=== PATIENT | male | born 2000 | race Caucasian/White ===

== ENCOUNTER 2023-12-10 15:39 | Emergency (ER) | payer BC ==
[2023-12-10 15:57] VITALS: TEMP 98.1
--- NOTE | 2023-12-10 16:04 | ERPHSYRPT ---
- History of Present Illness Time Seen by Provider: 12/10/23 15:50 Historian: patient, family Exam Limitations: no limitations Patient Subjective Stated Complaint: Chest pain Triage Nursing Assessment: Patient brought into ED per ED per EMS and tra nsferred self to bed. Patient A+O X 3. Patient's skin pink, warm and dry. Patient states around 1430 he started having a sharp pain into left side of rib and into chest pain 4/10. Patient denies N/V. Physician History: This is a 23-year-old white male who began having chest pain last evening but it was intermittent and went away. While at work, up on scaffolding, the patient began having left anterior chest pain that was slightly achy and intermittently stabbing and sharp. The symptoms were more constant and associated with left upper extremity numbness that was brief and suddenly resolved. therefore, he got down from the scaffolding and patient was brought into the emergency department by the paramedics. Patient has no documented coronary artery disease. He has never had anything like this in the past. Patient has not had a cough. He denies fever. Patient denies fall injury or trauma to the side or site. Timing/Duration: yesterday Quality: aching, sharpness, stabbing Location: other (Left chest) Chest Pain Radiation: arm (Left upper extremity numbness) Severity of Pain-Max: mild (To moderate) Severity of Pain-Current: mild Modifying Factors: Improves With: nothing Associated Symptoms: denies symptoms Prior Chest Pain/Cardiac Workup: no prior chest pain Nitro Today/Relief: no nitro taken today Aspirin Treatment Today: 81 mg x 4, provided by ED Allergies/Adverse Reactions: No Known Drug Allergies Allergy (Verified 12/10/23 15:42) Home Medications: No Home Meds 05/02/12 [History] Hx Tetanus, Diphtheria Vaccination/Date Given: No Hx Influenza Vaccination/Date Given: No Hx Pneumococcal Vaccination/Date Given: No Immunizations Up to Date: Yes Travel Risk - International Travel Have you traveled outside of the country in past 3 weeks: No - Coronavirus Screening Are you exhibiting any of the following symptoms?: No Close contact with a COVID-19 positive Pt in past 14-21 Days: No - Vaccine Status Have you recieved a Covid-19 vaccination: No - Review of Systems Constitutional: No Symptoms Eyes: No Symptoms Ears, Nose, & Throat: No Symptoms Respiratory: No Symptoms Cardiac: Chest Pain Abdominal/Gastrointestinal: No Symptoms Genitourinary Symptoms: No Symptoms Musculoskeletal: No Symptoms Skin: No Symptoms Neurological: No Symptoms Psychological: No Symptoms Endocrine: No Symptoms Hematologic/Lymphatic: No Symptoms Immunological/Allergic: No Symptoms All Other Systems: Reviewed and Negative - Past Medical History Pertinent Past Medical History: No Neurological History: No Pertinent History Cardiac History: No Pertinent History Respiratory History: No Pertinent History Endocrine Medical History: No Pertinent History Musculoskeletal History: Fractures, Other - Past Surgical History Past Surgical History: No - Social History Smoking Status: Never smoker Exposure to second hand smoke: No Drug Use: none Patient Lives Alone: No - Nursing Vital Signs Nursing Vital Signs: Initial Vital Signs Pulse Rate 66 12/10/23 15:41 Respiratory Rate 15 12/10/23 15:41 Blood Pressure 137/70 12/10/23 15:41 O2 Sat by Pulse Oximetry 97 12/10/23 15:41 Pain Scale Pain Intensity 4 - Physical Exam General Appearance: no apparent distress, alert, anxiety Eye Exam: PERRL/EOMI, eyes nml inspection Ears, Nose, Throat Exam: normal ENT inspection, moist mucous membranes Neck Exam: normal inspection, non-tender, supple, full range of motion Respiratory Exam: normal breath sounds, chest tenderness (Localized left anterior lateral chest), lungs clear ( discomfort), airway intact, No respiratory distress Cardiovascular Exam: regular rate/rhythm, normal heart sounds, normal peripheral pulses Gastrointestinal/Abdomen Exam: soft, normal bowel sounds, No tenderness Rectal Exam: not done Back Exam: normal inspection, normal range of motion, No CVA tenderness, No vertebral tenderness Extremity Exam: normal inspection, normal range of motion, pelvis stable Neurologic Exam: alert, oriented x 3, cooperative, vice president tax II-XII nml as tested, normal mood/affect, nml cerebellar function, nml station & gait, sensation nml Skin Exam: normal color, warm, dry Lymphatic Exam: No adenopathy SpO2 Interpretation: normal SpO2: 98 O2 Delivery: Room Air - Course Nursing assessment & vital signs reviewed: Yes EKG Interpreted by Me: RATE (70), Sinus Rhythm, NORMAL AXIS, NORMAL INTERVALS, NORMAL QRS, NORMAL ST-T, Other (No acute ischemia on today's twelve-lead EKG.) Ordered Tests: Active Orders 24 hr Category Date Time Status Ortho Assistant STAT Care 12/10/23 16:07 Active EKG-ER Only STAT Care 12/10/23 16:06 Active Pulse Oximetry (ED) STAT Care 12/10/23 16:06 Active CHEST 1 VIEW (PORTABLE) Stat Exams 12/10/23 16:19 Completed CBC W DIFF Stat Lab 12/10/23 16:24 Completed CMP Stat Lab 12/10/23 16:24 Completed D-DIMER QUANTITATIVE Stat Lab 12/10/23 16:24 Completed TROPONIN Q4H Lab 12/10/23 16:24 Completed TROPONIN Q4H Lab 12/10/23 20:15 Ordered TROPONIN Q4H Lab 12/11/23 00:15 Ordered Medication Summary Discontinued Medications Generic Name Dose Route Start Last Admin Trade Name Freq PRN Reason Stop Dose Admin Aspirin 324 mg 12/10/23 16:06 12/10/23 16:28 Aspirin 81 Mg Tab.Chew PO 12/10/23 16:07 324 mg STAT ONE Administration Aspirin Confirm 12/10/23 16:20 Aspirin 81 Mg Tab.Chew Administered 12/10/23 16:21 Dose 324 mg .ROUTE .[employer] [facility]-MED ONE Lab/Rad Data: Laboratory Result Diagrams 12/10/23 16:24 12/10/23 16:24 Laboratory Results 12/10/23 12/10/23 12/10/23 Range/Units 16:24 16:24 16:24 WBC (4.0-10.5) x10^3/uL RBC (4.1-5.6) x10^6/uL Hgb (12.5-18.0) g/dL Hct (42-50) % MCV (78-100) fL MCH (26-32) pg MCHC (32-36) g/dL RDW (11.5-14.0) % Plt Count (150-450) x10^3/uL MPV (7.5-11.0) fL Gran % (36.0-66.0) % Immature Gran % (Auto) (0.00-0.4) % Nucleat RBC Rel Count (0.00-0.1) % Eos # (Auto) (0-0.5) x10^3/uL Immature Gran # (Auto) (0.00-0.03) x10^3u/L Absolute Lymphs (auto) (1.0-4.6) x10^3/uL Absolute Monos (auto) (0.0-1.3) x10^3/uL Absolute Nucleated RBC (0.00-0.01) x10^3u/L Lymphocytes % (24.0-44.0) % Monocytes % (0.0-12.0) % Eosinophils % (0.00-5.0) % Basophils % (0.0-0.4) % Absolute Granulocytes (1.4-6.9) x10^3/uL Basophils # (0-0.4) x10^3/uL D-Dimer < 0.19 (0.0-0.50) mg/L Sodium 138 (137-145) mmol/L Potassium 4.0 (3.5-5.1) mmol/L Chloride 102 (98-107) mmol/L Carbon Dioxide 30 (22-30) mmol/L Anion Gap 10.3 (5-15) MEQ/L BUN 14 (9-20) mg/dL Creatinine 0.90 (0.66-1.25) mg/dL Estimated GFR 124.6 ML/MIN Glucose 89 (74-106) mg/dL Calcium 9.6 (8.4-10.2) mg/dL Total Bilirubin 0.60 (0.2-1.3) mg/dL AST 36 (17-59) U/L ALT 25 (0-50) U/L Alkaline Phosphatase 70 (38-126) U/L Troponin I < 0.012 (0.000-0.034) ng/mL Serum Total Protein 8.0 (6.3-8.2) g/dL Albumin 4.9 (3.5-5.0) g/dL 12/10/23 Range/Units 16:24 WBC 10.9 H (4.0-10.5) x10^3/uL RBC 4.29 (4.1-5.6) x10^6/uL Hgb 13.7 (12.5-18.0) g/dL Hct 39.3 L (42-50) % MCV 91.6 (78-100) fL MCH 31.9 (26-32) pg MCHC 34.9 (32-36) g/dL RDW 11.9 (11.5-14.0) % Plt Count 188 (150-450) x10^3/uL MPV 9.2 (7.5-11.0) fL Gran % 70.4 H (36.0-66.0) % Immature Gran % (Auto) 0.4 (0.00-0.4) % Nucleat RBC Rel Count 0.0 (0.00-0.1) % Eos # (Auto) 0.08 (0-0.5) x10^3/uL Immature Gran # (Auto) 0.04 H (0.00-0.03) x10^3u/L Absolute Lymphs (auto) 2.36 (1.0-4.6) x10^3/uL Absolute Monos (auto) 0.70 (0.0-1.3) x10^3/uL Absolute Nucleated RBC 0.00 (0.00-0.01) x10^3u/L Lymphocytes % 21.6 L (24.0-44.0) % Monocytes % 6.4 (0.0-12.0) % Eosinophils % 0.7 (0.00-5.0) % Basophils % 0.5 (0.0-0.4) % Absolute Granulocytes 7.68 H (1.4-6.9) x10^3/uL Basophils # 0.05 (0-0.4) x10^3/uL D-Dimer (0.0-0.50) mg/L Sodium (137-145) mmol/L Potassium (3.5-5.1) mmol/L Chloride (98-107) mmol/L Carbon Dioxide (22-30) mmol/L Anion Gap (5-15) MEQ/L BUN (9-20) mg/dL Creatinine (0.66-1.25) mg/dL Estimated GFR ML/MIN Glucose (74-106) mg/dL Calcium (8.4-10.2) mg/dL Total Bilirubin (0.2-1.3) mg/dL AST (17-59) U/L ALT (0-50) U/L Alkaline Phosphatase (38-126) U/L Troponin I (0.000-0.034) ng/mL Serum Total Protein (6.3-8.2) g/dL Albumin (3.5-5.0) g/dL - Progress Progress: improved Air Movement: good Progress Note: 12/10/23 17:25 This patient's medical issue is 1 of moderate complexity. The level of complexity in the workup performed is based on review of the patient's past medical history, review of the patient's medication list, review of patient drug allergy list, history of present illness and physical findings on examination. The workup in this patient includes placement of an intravenous line, chest x- ray, twelve-lead EKG, D-dimer level, troponin level, CMP and CBC labs. This patient's chest x-ray was interpreted by the radiologist and I reviewed the impression. There is no evidence of any acute cardiopulmonary process. 12/10/23 17:41 I interpreted the patient's laboratory data workup. Based on the patient's laboratory data results, there is no evidence of any acute, emergent medical issue. Blood Culture(s) Obtained: No Antibiotics given: No Counseled pt/family regarding: lab results, diagnosis, need for follow-up, rad results Medical Desision Making - Independent Historian Additional History obtained from: Spouse - Diagnostic Testing Diagnostic test were ordered, analyzed, and reviewed by me: Yes Radiological Interpretation: Interpreted by me - Risk of complications Minimal Risk: Minimal risk of morbidity - Departure Departure Disposition: Home Clinical Impression: Nonspecific chest pain Condition: Stable Critical Care Time: No Referrals: PARRISH SCHULZ DO [Primary Care Provider] - Follow up/PCP as directed Additional Instructions: Use Tylenol and ibuprofen for pain control. Call your primary care provider tomorrow, 12/11/2023, to make arranges for follow-up appointment in the next 5 to 7 days for further evaluation and management.
[2023-12-10] MEDS ORDERED: BABY ASPIRIN 81 MG CHEW ONE (16:20)
[2023-12-10 16:28] VITALS: BP 128/75; PULSE 77; RESP 19
[2023-12-10 16:28] LABS: Absolute Neutrophil Ct (ANC) 7.68 x10^3/uL (1.4-6.9); BASOPHIL % 0.5 % (0.0-0.4); Basophil (Absolute #) 0.05 x10^3/uL (0-0.4); Eosinophil % 0.7 % (0.00-5.0); Eosinophil (Absolute #) 0.08 x10^3/uL (0-0.5); Hematocrit 39.3 % (42-50); Hemoglobin 13.7 g/dL (12.5-18.0); IMMATURE GRAN # 0.04 x10^3u/L (0.00-0.03); IMMATURE GRAN % 0.4 % (0.00-0.4); Lymphocyte (Absolute #) 2.36 x10^3/uL (1.0-4.6); Lymphocytes % 21.6 % (24.0-44.0); Mean Cell Volume 91.6 fL (78-100); Mean Corpuscular Hemoglobin 31.9 pg (26-32); Mean Corpuscular Hgb Concent. 34.9 g/dL (32-36); Mean Platelet Volume 9.2 fL (7.5-11.0); Monocytes % 6.4 % (0.0-12.0); Neutrophil % 70.4 % (36.0-66.0); Platelet Count 188 x10^3/uL (150-450); Red Blood Count 4.29 x10^6/uL (4.1-5.6); Red Cell Distribution Width 11.9 % (11.5-14.0); White Blood Count 10.9 x10^3/uL (4.0-10.5)
[2023-12-10] MEDS: BABY ASPIRIN 81 MG CHEW PO ONE (16:28)
--- NOTE | 2023-12-10 16:34 | XRAY ---
Indication: Left chest pain. Comparison: None Portable apical lordotic chest demonstrates normal heart, lungs, and bony thorax.
[2023-12-10 16:42] LABS: ALBUMIN 4.9 g/dL (3.5-5.0); ANION GAP 10.3 MEQ/L (5-15); BILIRUBIN,TOTAL 0.6 mg/dL (0.2-1.3); Calcium 9.6 mg/dL (8.4-10.2); Creatinine 1 0.9 mg/dL (0.66-1.25); EST GLOMERULAR FILTRATION RATE 124.6 ML/MIN
[2023-12-10 17:09] VITALS: O2SAT 98
== END 2023-12-10 18:10 | disposition home or self-care (01) ==
LOC: ED 15:39
DX: R07.9 Chest pain, unspecified (principal); Z28.310 Unvaccinated for COVID-19
CPT/HCPCS: 36415; 71045; 80053; 84484; 85025; 85379; 93005; 93041; 94760; 99284; A9270-GY

== ENCOUNTER 2024-03-12 14:50 | Day surgery (SDC) | payer BC, OTHER ==
[2024-03-12] MEDS ORDERED: BUPIVACAINE 0.5% VIAL IJ ONE (14:51)
[2024-03-12] MEDS ORDERED: XYLOCAINE-MPF 1% 5ML SDV IJ ONE (14:51)
[2024-03-12] MEDS ORDERED: Depo-Medrol 40 MG/ML IM ONE (14:51)
--- NOTE | 2024-03-12 17:20 | XRAY ---
Indication: Right ankle injection. Intraoperative fluoroscopy provided for 141 seconds. Single frontal digital spot image submitted for interpretation demonstrates needle tip projecting over expected right talotibial joint. Small amount of contrast injected for needle tip placement. Correlate with intraoperative findings/report. Incidental multiple tarsal and distal tibia orthopedic hardware.
--- NOTE | 2024-03-12 17:20 | XRAY ---
14 seconds of fluoroscopy was used in surgery for a right intra-articular ankle injection.
== END 2024-03-12 16:35 | disposition home or self-care (01) ==
LOC: SDC-PAIN 14:50
PROVIDERS: ATTEND Psychiatry & Neurology Pain Medicine
DX: M19.271 Secondary osteoarthritis, right ankle and foot (principal)
CPT/HCPCS: 20610; 73600; 77002; J1010; Q9966

== ENCOUNTER 2024-03-17 10:29 | Emergency (ER) | payer BC, OTHER ==
[2024-03-17 10:56] VITALS: BP 154/84; PULSE 106; RESP 20; TEMP 98.4; O2SAT 97
[2024-03-17 11:26] LABS: Group A Strep NOT DETECTED (NEGATIVE)
[2024-03-17 11:37] LABS: INFLUENZA A NEGATIVE (NEGATIVE); INFLUENZA B NEGATIVE (NEGATIVE); RESPIRATORY SYNCTIAL VIRUS NEGATIVE (NEGATIVE); SARS-CoV-2 Xpert Express NEGATIVE (NEGATIVE)
--- NOTE | 2024-03-17 12:02 | ERPHSYRPT ---
- History of Present Illness Time Seen by Provider: 03/17/24 10:33 Source: patient Exam Limitations: no limitations Patient Subjective Stated Complaint: Sore throat Triage Nursing Assessment: Patient ambulated back to ED and transferred self to bed. Patient A+O X 3. Patients' skin pink, warm and dry. Patient complains of sore throat and nasal drainage since Sunday. Physician History: 24 years old presented in the ER with complaint of sore throat and sinus drainage with minimal nonproductive cough for the last 2 days. Patient this morning noticed some spots on the left tonsils. No fever or chills reported. No difficulty swallowing or breathing. No known sick contact. No abdominal pain. Allergies/Adverse Reactions: No Known Drug Allergies Allergy (Verified 03/17/24 10:45) Home Medications: Celecoxib 100 mg [celeBREX 100 MG] 200 mg PO BID 03/17/24 [History] Pregabalin [Lyrica 150Mg] 1 tab PO BID 03/17/24 [History] Hx Tetanus, Diphtheria Vaccination/Date Given: No Hx Influenza Vaccination/Date Given: No Hx Pneumococcal Vaccination/Date Given: No Immunizations Up to Date: Yes Travel Risk - International Travel Have you traveled outside of the country in past 3 weeks: No If Yes, where;: N - Emerging Infectious Disease Are you exhibiting symptoms associated with any current EIDs: No - Review of Systems Constitutional: No Symptoms Eyes: No Symptoms Ears, Nose, & Throat: Nose Congestion, Throat Pain, Throat Swelling Respiratory: Cough Cardiac: No Symptoms Abdominal/Gastrointestinal: No Symptoms Neurological: No Symptoms Endocrine: No Symptoms - Past Medical History Pertinent Past Medical History: No Neurological History: No Pertinent History Cardiac History: No Pertinent History Respiratory History: No Pertinent History Endocrine Medical History: No Pertinent History Musculoskeletal History: Fractures, Other - Past Surgical History Past Surgical History: No - Social History Smoking Status: Never smoker Exposure to second hand smoke: No Drug Use: none Patient Lives Alone: No - Nursing Vital Signs Nursing Vital Signs: Initial Vital Signs Temperature 98.4 F 03/17/24 10:52 Pulse Rate 106 H 03/17/24 10:52 Respiratory Rate 20 03/17/24 10:52 Blood Pressure 154/84 03/17/24 10:52 O2 Sat by Pulse Oximetry 97 03/17/24 10:52 Pain Scale Pain Intensity 5 - Physical Exam General Appearance: no apparent distress, alert Eye Exam: bilateral eye: normal inspection, PERRL, EOMI Ear Exam: bilateral ear: auricle normal, canal normal, TM normal Nasal Exam: normal inspection Throat Exam: normal, pharynx swelling, tonsillar swelling, No tonsillar exudate Neck Exam: normal inspection, non-tender, supple, full range of motion Cardiovascular/Respiratory Exam: normal breath sounds, regular rate/rhythm Abdominal Exam: non-tender, soft, no organomegaly Neurologic Exam: alert, oriented x 3, cooperative Skin Exam: normal color SpO2 Interpretation: normal SpO2: 97 O2 Delivery: Room Air Lab/Rad Data: Laboratory Results 03/17/24 Range/Units 10:50 Influenza Type A Ag NEGATIVE (NEGATIVE) Influenza Type B Ag NEGATIVE (NEGATIVE) RSV (PCR) NEGATIVE (NEGATIVE) SARS-CoV-2 (PCR) NEGATIVE (NEGATIVE) Group A Strep Antibody NOT DETECTED (NEGATIVE) - Progress Progress: unchanged Progress Note: 03/17/24 12:01 24-year-old is evaluated for sore throat, sinus/nasal congestion and minimal nonproductive cough. Patient is afebrile. I did not appreciate any tonsillar exudates. Patient has some diffuse erythema of the pharynx. No left upper quadrant tenderness or splenomegaly. Has negative flu COVID RSV and strep. I believe patient has viral etiology symptoms, recommended supportive care and outpatient follow-up. Discussed signs symptoms of worsening needing return to ER which he seems understanding. Stable for discharge. Counseled pt/family regarding: lab results, diagnosis, need for follow-up Medical Desision Making - Diagnostic Testing Diagnostic test were ordered, analyzed, and reviewed by me: Yes - Departure Departure Disposition: Home Clinical Impression: Viral pharyngitis Condition: Stable Critical Care Time: No Referrals: PARRISH SCHULZ DO [Primary Care Provider] - Follow up with PCP 1 day Instructions: Viral Pharyngitis (DC) Additional Instructions: Take Tylenol/ibuprofen as needed. Follow-up with primary care for reevaluation. Return to ER for any worsening.
== END 2024-03-17 12:23 | disposition home or self-care (01) ==
LOC: ED 10:29
DX: J02.9 Acute pharyngitis, unspecified (principal); R05.1 Acute cough; Z79.899 Other long term (current) drug therapy
CPT/HCPCS: 0241U; 87651; 99282

== ENCOUNTER 2024-05-21 15:18 | Day surgery (SDC) | payer BC, OTHER ==
[2024-05-21] MEDS ORDERED: BUPIVACAINE 0.5% VIAL IJ ONE (15:19)
[2024-05-21] MEDS ORDERED: Depo-Medrol 40 MG/ML IM ONE (15:19)
[2024-05-21] MEDS ORDERED: LIDOCAINE HCL 1% 50 MG/5 ML VL PF IJ ONE (15:19)
[2024-05-21] MEDS ORDERED: TYLENOL 325 MG ONE (17:23)
--- NOTE | 2024-05-21 19:03 | XRAY ---
Indication: Right ankle injection. Intraoperative fluoroscopy provided for 14 seconds. Single frontal digital spot image submitted for interpretation demonstrates needle tip projecting over talotibial articulation. Small amount of contrast injected for needle tip placement. Correlate with intraoperative findings/report. Incidental multiple distal tibial and talar orthopedic hardware.
--- NOTE | 2024-05-22 12:14 | XRAY ---
14 seconds of fluoroscopy was used in surgery for a right intra-articular ankle injection.
== END 2024-05-21 17:04 | disposition home or self-care (01) ==
LOC: SDC-PAIN 15:18
PROVIDERS: ATTEND Psychiatry & Neurology Pain Medicine
DX: M19.071 Primary osteoarthritis, right ankle and foot (principal)
CPT/HCPCS: 20610; 73600; 77002; J2001; Q9966; A9270-GY

== ENCOUNTER 2024-08-12 07:57 | Day surgery (SDC) | payer BC ==
[2024-08-12] MEDS ORDERED: CEFAZOLIN 2 GM/100 ML NaCl 2 GM/100 ML IVPB IV ONE (08:13)
[2024-08-12] MEDS ORDERED: Transderm Scop 1.5MG Patch ONE (08:13)
[2024-08-12] MEDS ORDERED: Lactated Ringers 1,000 ML IV ONE ×2 (08:13→15:37)
[2024-08-12] MEDS: Lactated Ringers 1,000 ML IV SCH (08:15)
[2024-08-12] MEDS: Transderm Scop 1.5MG Patch TOP PRN (08:15)
[2024-08-12] MEDS: CEFAZOLIN 2 GM/100 ML NaCl 2 GM/100 ML IVPB IV SCH (08:15)
[2024-08-12 08:32] LABS: Hematocrit 38.8 % (40.1-51.0); Hemoglobin 13.5 g/dL (13.7-17.5); Mean Cell Volume 93.5 fL (79.0-92.2); Mean Corpuscular Hemoglobin 32.5 pg (25.7-32.2); Mean Corpuscular Hgb Concent. 34.8 g/dL (32.3-36.5); Mean Platelet Volume 9.2 fL (9.4-12.4); Platelet Count 196 x10^3/uL (163-337); Red Blood Count 4.15 x10^6/uL (4.63-6.08); Red Cell Distribution Width 11.9 % (11.6-14.4); White Blood Count 9.7 x10^3/uL (4.23-9.07)
[2024-08-12 08:59] LABS: ALBUMIN 4.7 g/dL (3.5-5.0); ANION GAP 13.9 MEQ/L (5-15); BILIRUBIN,TOTAL 0.8 mg/dL (0.2-1.3); Calcium 9.4 mg/dL (8.4-10.2); Creatinine 1 0.92 mg/dL (0.66-1.25); EST GLOMERULAR FILTRATION RATE 120.6 ML/MIN; Potassium 4.4 mmol/L (3.5-5.1); Total Protein 7.7 g/dL (6.3-8.2)
[2024-08-12] MEDS ORDERED: Marcaine Mpf 0.5% Vial 30 Ml ONE (12:03)
[2024-08-12] MEDS ORDERED: EXPAREL 133 MG/10 ML VIAL IJ ONE (12:04)
[2024-08-12] MEDS ORDERED: Versed 2 MG/2 ML Injection ONE ×2 (12:08→12:52)
[2024-08-12] MEDS ORDERED: SUBLIMAZE 100 MCG/2 ML ONE (12:09)
[2024-08-12] MEDS ORDERED: DEXMEDETOMIDINE 80 MCG/20ML-NS IV ONE (14:34)
[2024-08-12] MEDS ORDERED: ROCURONIUM BROMIDE IV ONE (14:34)
[2024-08-12] MEDS ORDERED: Xylocaine-Mpf 2% 5 Ml Vial ONE (14:34)
[2024-08-12] MEDS ORDERED: DIPRIVAN 200 MG/20 ML IV ONE (14:35)
[2024-08-12] MEDS ORDERED: Zofran 4 MG/2 ML VIAL ONE (14:37)
[2024-08-12] MEDS ORDERED: TORAdol 30 mg Injection ONE (14:37)
[2024-08-12] MEDS ORDERED: Decadron 4 MG INJ ONE (14:37)
[2024-08-12] MEDS ORDERED: BREVIBLOC 100 MG/10 ML IV ONE (15:16)
[2024-08-12] MEDS ORDERED: BRIDION 200MG/2ML IV ONE (18:26)
[2024-08-12 19:57] VITALS: RESP 16; TEMP 97.7
[2024-08-12 20:08] VITALS: BP 123/69; PULSE 76; O2SAT 96
[2024-08-12 21:08] LABS: Appearance Cloudy (Clear); Bacteria None Seen /HPF (None Seen); Bilirubin Negative (Negative); Blood Moderate (Negative); Epithelial Cells None Seen /HPF (None Seen); Glucose, Urine Negative (Negative); Hyaline Casts NONE SEEN /LPF (0-2); Ketones Negative (Negative); Leukocyte Esterase Negative (Negative); Nitrite Negative (Negative); Ph 6.5 (4.6-8.0); Protein,Urine Dip Negative (Negative); RBC 51-100 /HPF (0-5); Urobilinogen 0.2 mg/dL (0.2)
--- NOTE | 2024-08-13 08:39 | XRAY ---
Indication: Hardware removal right ankle. Tibiotalar arthrodesis. Fibula osteotomy. Intraoperative fluoroscopy provided for 5 minutes 42 seconds. 29 digital spot images submitted for interpretation ultimately demonstrates talotibial arthrodesis with intact screws and osteotomy distal fibula with intact lateral fixation plate/screws. Correlate with intraoperative findings/report.
--- NOTE | 2024-08-13 10:03 | XRAY ---
Five minutes and 42 seconds of fluoroscopy was used in surgery for a hardware removal right ankle. Tibiotalar arthrodesis. Fibula osteotomy.
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
== END 2024-08-12 20:17 | disposition home or self-care (01) ==
LOC: SDC 07:57
PROVIDERS: ATTEND Podiatrist Foot & Ankle Surgery
DX: S82.51XA Displaced fracture of medial malleolus of right tibia, initial encounter for closed fracture (principal); M25.571 Pain in right ankle and joints of right foot; S92.124A Nondisplaced fracture of body of right talus, initial encounter for closed fracture; T84.84XA Pain due to internal orthopedic prosthetic devices, implants and grafts, initial encounter; M19.071 Primary osteoarthritis, right ankle and foot; R26.2 Difficulty in walking, not elsewhere classified; M89.261 Other disorders of bone development and growth, right tibia
CPT/HCPCS: 20680; 27707; 27828; 27870; 36415; 73610; 76000; 76937; 80053; 81001; 85027; 87086; C1713; C1762; J0690; J1100; J1885; J2250; J2405; J2704; J3010; A9270-GY

== ENCOUNTER 2024-08-16 21:33 | Emergency (ER) | payer BC ==
[2024-08-16 22:44] VITALS: TEMP 98; O2SAT 100
--- NOTE | 2024-08-16 23:22 | ERPHSYRPT ---
- History of Present Illness Source: patient Exam Limitations: no limitations Patient Subjective Stated Complaint: pt had ankle fusion on sunday with Dr. Carson, pt states since yesterday afternoon where his incision and plate was put in it feels like their in something "off with it", pt c/o burning around the area Triage Nursing Assessment: pt transferred from wheelchair to cot by self, dressing noted to R ankle, afebrile, pt in no apparent distress at this time, f/u with dr. Carson is on sunday Physician History: Patient had ankle surgery about 3 or 4 days ago. He says something feels like it is burning in his foot. He is wanting to know if he has an infection. He is had no fever or chills. He is on antibiotics. Nothing makes symptoms better or worse. He does not have any infectious symptoms systemically at this time. He has a large cast boot on. Allergies/Adverse Reactions: gabapentin Allergy (Verified 08/16/24 22:36) Home Medications: Celecoxib 100 mg [celeBREX 100 MG] 200 mg PO BID 03/17/24 [History] Pregabalin [Lyrica 150Mg] 1 tab PO BID 03/17/24 [History] Amitriptyline HCl 10 mg [Elavil 10 mg] 10 mg PO DAILY 08/05/24 [History] Oxycodone HCl/Acetaminophen [Oxycodone-Acetaminophn 7.5-325] 1 tab PO Q6HPRN PRN 08/16/24 [History] levoFLOXacin [Levofloxacin] 500 mg PO DAILY 08/16/24 [History] Hx Tetanus, Diphtheria Vaccination/Date Given: No Hx Influenza Vaccination/Date Given: No Hx Pneumococcal Vaccination/Date Given: No Travel Risk - International Travel Have you traveled outside of the country in past 3 weeks: No - Emerging Infectious Disease Are you exhibiting symptoms associated with any current EIDs: No - Review of Systems Constitutional: No Symptoms Eyes: No Symptoms Musculoskeletal: Other (See HPI) Skin: No Symptoms Neurological: No Symptoms - Past Medical History Pertinent Past Medical History: Yes Neurological History: No Pertinent History ENT History: No Pertinent History Cardiac History: No Pertinent History Respiratory History: No Pertinent History Endocrine Medical History: No Pertinent History Musculoskeletal History: Fractures, Other GI Medical History: GERD History: No Pertinent History Psycho-Social History: No Pertinent History Male Reproductive Disorders: No Pertinent History - Past Surgical History Past Surgical History: Yes Neuro Surgical History: No Pertinent History Cardiac: No Pertinent History Respiratory: No Pertinent History Gastrointestinal: No Pertinent History Genitourinary: No Pertinent History Musculoskeletal: Other Male Surgical History: No Pertinent History Other Surgical History: right ankle, left ankle, right hip - Social History Smoking Status: Never smoker Exposure to second hand smoke: Yes Drug Use: none Patient Lives Alone: No - Social Determinants of Health Will the patient participate in the screening: Declined to provide - Nursing Vital Signs Nursing Vital Signs: Initial Vital Signs Temperature 98.0 F 08/16/24 22:39 Pulse Rate 85 08/16/24 22:39 Respiratory Rate 18 08/16/24 22:39 Blood Pressure 134/74 08/16/24 22:39 O2 Sat by Pulse Oximetry 100 08/16/24 22:39 Pain Scale Pain Intensity 3 - Physical Exam General Appearance: no apparent distress Ankle Exam: right ankle: swelling, other (The skin was evaluated after removing the cast. It looks fine. There are some mild oozing but no signs or symptoms of infection.) Neuro/Tendon Exam: normal sensation, normal motor functions Skin Exam: normal color, warm SpO2: 100 - Course Nursing assessment & vital signs reviewed: Yes - Progress Progress Note: The patient is on antibiotics he has no systemic symptoms. His skin exam look good. Do not think he is infected. 1 to go ahead and get CBC so they can have something to monitor if symptoms get worse. Patient stable for discharge. 08/16/24 23:36 Medical Desision Making - Independent Historian Additional History obtained from: Spouse - Diagnostic Testing Diagnostic test were ordered, analyzed, and reviewed by me: Yes - Risk of complications Minimal Risk: Minimal risk of morbidity - Departure Departure Disposition: Home Clinical Impression: Encounter for wound re-check Condition: Stable Critical Care Time: No Referrals: PARRISH SCHULZ DO [Primary Care Provider] - Follow up/PCP as directed Instructions: Wound Care (DC) Additional Instructions: Follow-up with your orthopedic doctor as scheduled. Continue antibiotics. Return if symptoms worsen
[2024-08-16 23:40] VITALS: BP 130/79
[2024-08-17 00:12] VITALS: PULSE 78; RESP 17
== END 2024-08-17 00:15 | disposition home or self-care (01) ==
LOC: ED 21:33
DX: Z48.01 Encounter for change or removal of surgical wound dressing (principal); Z79.891 Long term (current) use of opiate analgesic; Z79.899 Other long term (current) drug therapy
CPT/HCPCS: 99282

== ENCOUNTER 2025-01-26 07:59 | Emergency (ER) | payer BC, OTHER ==
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
[2025-01-26 08:22] VITALS: RESP 18
[2025-01-26] MEDS ORDERED: solu-MEDROL ONE (08:59)
[2025-01-26] MEDS ORDERED: Sterile H2O 10 ml IJ ONE (08:59)
[2025-01-26] MEDS ORDERED: Norflex 60 MG/2 ML ONE (08:59)
[2025-01-26] MEDS: Norflex 60 MG/2 ML IM ONE (09:05)
[2025-01-26] MEDS: solu-MEDROL 125 MG, Sterile H2O 10 ml 2 ML IM ONE (09:05)
[2025-01-26] MEDS ORDERED: DELTASONE 20 MG ONE (09:16)
[2025-01-26] MEDS ORDERED: Norflex 100 MG Tablet PO ONE (09:16)
[2025-01-26] MEDS: Norflex 100 MG Tablet PO ONE (09:17)
[2025-01-26] MEDS: DELTASONE 20 MG PO ONE (09:17)
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
[2025-01-26 10:56] VITALS: BP 159/99; PULSE 63; TEMP 97.5; O2SAT 97
== END 2025-01-26 10:50 | disposition home or self-care (01) ==
LOC: ED 07:59
DX: M62.838 Other muscle spasm (principal); V89.2XXA Person injured in unspecified motor-vehicle accident, traffic, initial encounter; R51.9 Headache, unspecified; M54.2 Cervicalgia; Z79.52 Long term (current) use of systemic steroids; Z79.899 Other long term (current) drug therapy; Z59.89 Other problems related to housing and economic circumstances
CPT/HCPCS: 70450; 72125; 99285; J2360; J2919; A9270-GY

== ENCOUNTER 2025-07-23 17:12 | Emergency (ER) | payer BC ==
--- NOTE | 2025-07-23 17:16 | ERPHSYRPT ---
- History of Present Illness Time Seen by Provider: 07/23/25 17:15 Source: patient Exam Limitations: no limitations Physician History: This is a right-handed 24-year-old white male patient who arrives by private vehicle and is a patient of Dr. Schulz who was wearing the glove when he punched a piece of wood 2 hours prior to arrival. He now has pain and swelling dorsal aspect right hand in the region of the 4th and 5th knuckles. Occurred: just prior to arrival Method of Injury: direct blow Quality: constant, aching Severity of Pain-Max: moderate Severity of Pain-Current: moderate Extremities Pain Location: hand: right (Dorsal aspect swelling and pain) Modifying Factors: Improves With: movement Associated Symptoms: none Allergies/Adverse Reactions: gabapentin Allergy (Verified 07/23/25 17:18) Home Medications: Dextroamphetamine/Amphetamine [Dextroamp-Amphet ER 20 mg Cap] 20 mg PO DAILY 07/23/25 [History] Hydrocodone/Acetaminophen [Hydrocodone-Acetamin 10-325 mg] 1 tab PO BID PRN 07/23/25 [History] Meloxicam 15 mg [Meloxicam 15 MG] 15 mg PO DAILY 07/23/25 [History] Hx Tetanus, Diphtheria Vaccination/Date Given: No Hx Influenza Vaccination/Date Given: No Hx Pneumococcal Vaccination/Date Given: No Travel Risk - International Travel Have you traveled outside of the country in past 3 weeks: No - Emerging Infectious Disease Are you exhibiting symptoms associated with any current EIDs: No - Review of Systems Constitutional: No Symptoms Eyes: No Symptoms Ears, Nose, & Throat: No Symptoms Respiratory: No Symptoms Cardiac: No Symptoms Abdominal/Gastrointestinal: No Symptoms Genitourinary Symptoms: No Symptoms Musculoskeletal: Injury (Right hand injury secondary to punching a piece of wood) Skin: No Symptoms Neurological: No Symptoms Psychological: No Symptoms Endocrine: No Symptoms Hematologic/Lymphatic: No Symptoms Immunological/Allergic: No Symptoms All Other Systems: Reviewed and Negative - Past Medical History Pertinent Past Medical History: Yes Neurological History: No Pertinent History Cardiac History: No Pertinent History Respiratory History: No Pertinent History Endocrine Medical History: No Pertinent History Musculoskeletal History: No Pertinent History GI Medical History: No Pertinent History History: No Pertinent History Other Medical History: PSH: R ANKLE SX X 2, HEAD SURGERY, R HIP SURGERY - Past Surgical History Past Surgical History: Yes Neuro Surgical History: No Pertinent History Cardiac: No Pertinent History Respiratory: No Pertinent History Gastrointestinal: No Pertinent History Genitourinary: No Pertinent History Musculoskeletal: Other Male Surgical History: No Pertinent History Other Surgical History: right ankle, left ankle, right hip - Social History Smoking Status: Never smoker Exposure to second hand smoke: Yes Drug Use: none Patient Lives Alone: No - Social Determinants of Health Will the patient participate in the screening: Declined to provide - Nursing Vital Signs Nursing Vital Signs: Initial Vital Signs Pulse Rate 93 H 07/23/25 17:19 Blood Pressure 144/81 07/23/25 17:19 O2 Sat by Pulse Oximetry 98 07/23/25 17:19 Pain Scale Pain Intensity 6 - Physical Exam General Appearance: no apparent distress, alert, anxiety Eyes, Ears, Nose, Throat Exam: normal ENT inspection, moist mucous membranes Neck Exam: normal inspection, non-tender, supple, full range of motion Cardiovascular/Respiratory Exam: chest non-tender, no respiratory distress Abdominal Exam: non-tender Back Exam: normal inspection, normal range of motion, No CVA tenderness, No v ertebral tenderness Shoulder Exam: normal inspection, non-tender, no evidence of injury, normal ROM Elbow/Forearm Exam: normal inspection, non-tender, no evidence of injury, normal ROM Wrist Exam: normal inspection, non-tender, no evidence of injury, normal ROM Hand Exam: bone tenderness (Right hand dorsal aspect), limited ROM (Right hand), soft tissue tenderness (Right hand dorsal aspect), swelling (Right hand dorsal aspect) Neuro/Tendon Exam: normal sensation, normal motor functions, normal tendon functions, no evidence tendon injury Mental Status Exam: alert, oriented x 3, cooperative Skin Exam: normal color, warm, dry SpO2 Interpretation: normal O2 Delivery: Room Air - Course Nursing assessment & vital signs reviewed: Yes Ordered Tests: Active Orders 24 hr Category Date Time Status HAND (MINIMUM 3 VIEWS) Stat Exams 07/23/25 17:20 Taken - Progress Progress: unchanged, pain not gone completely, re-examined Progress Note: 07/23/25 17:36 My medical decision making and the assignment of low complexity to this avani ent's medical issue today is based on review of the patient's past medical history, review the patient's medication list, reviewed patient drug allergy list, history present does not physical findings on examination. The workup in this patient includes x-ray of right hand. Differential diagnosis includes was not limited to right hand contusion, right hand fracture, right hand dislocation I interpreted the patient's preliminary right hand x-ray report. I see no acute fracture or dislocation 07/23/25 18:24 The radiologist interpreted the final report of the patient's right hand x-ray. There is no evidence of acute fracture or dislocation Counseled pt/family regarding: need for follow-up, rad results Medical Desision Making - Risk of complications Low Risk: Low risk of morbidity from additional dx testing or treatment - Departure Departure Disposition: Home Clinical Impression: Contusion, hand Condition: Stable Critical Care Time: No Referrals: PARRISH SCHULZ DO [Primary Care Provider, [facility]] - Follow up/PCP as directed Additional Instructions: Use Tylenol and ibuprofen for pain and swelling control. Ice pack to tender area 3 times a day for the next 72 hours. Call your primary care provider tomorrow, 07/24/2025, to make arrangements for follow-up appointment for further evaluation and management.
[2025-07-23 17:28] VITALS: RESP 18; TEMP 96.8
[2025-07-23 18:32] VITALS: BP 157/80; PULSE 85; O2SAT 98
--- NOTE | 2025-07-24 08:35 | XRAY ---
Indication: Pain and swelling following injury. Comparison: None 3 view right hand demonstrates soft tissue swelling posterior to MCP. No other bony, articular, or soft tissue abnormalities.
== END 2025-07-23 18:35 | disposition home or self-care (01) ==
LOC: ED 17:12
DX: S60.221A Contusion of right hand, initial encounter (principal); M79.641 Pain in right hand; W22.8XXA Striking against or struck by other objects, initial encounter